=== PATIENT | male | born 1995 | race Two or more races ===

== ENCOUNTER 2018-07-16 05:39 | Emergency (ER) | payer SELFPAY ==
[~2018-07-16] VITALS: Ht 175.3 cm; Wt 70.8 kg
--- NOTE | 2018-07-16 05:50 | NUR ---
PT BIBS, AOX4 C/O SOB, AND HARD TO BREATH WITH SLIGHT PAIN OF 5/10 INTERMITTENT, ANXIOUS, 88 BEFORE BEING PLACED ON O2, VS STABLE, PLACED ON ER BED 3, IMMEDIATELY SEEN BY DR MOLINA, FOR EVAL, TX ORDERS AND MEDS ORDERED.
[2018-07-16 06:15] LABS: BASOPHILS # (AUTO) 0.1 /CMM (0.0-0.2); BASOPHILS % (AUTO) 0.6 % (0.0-2.0); EOSINOPHILS % (AUTO) 0.6 % (0.0-6.0); HEMATOCRIT 45 % (39-51); HEMOGLOBIN 15.7 g/dL (13.5-17.5); LYMPHOCYTES % (AUTO) 31.9 % (20.0-44.0); MEAN CORPUSCULAR HGB CONC 35 g/dl (31.0-36.0); MEAN CORPUSCULAR VOLUME 87 fL (80-96); MONOCYTES # (AUTO) 0.8 /CMM (0.1-1.30); MONOCYTES % (AUTO) 8.7 % (2.0-12.0); NEUTROPHILS # (AUTO) 5.4 /CMM (1.8-8.9); NEUTROPHILS % (AUTO) 58.2 % (43.0-81.0); PLATELET COUNT (AUTO) 215 /CMM (150-450); WHITE BLOOD COUNT (AUTO) 9.4 K/uL (4.3-11.0)
[2018-07-16 06:24] LABS: CALCIUM, SERUM 9.2 mg/dL (8.5-10.1); CARBON DIOXIDE 27 mmol/L (21-32); CHLORIDE 100 mmol/L (98-107); GLUCOSE 103 mg/dL (74-106); POTASSIUM 3.2 mmol/L (3.5-5.1); SODIUM SERUM 139 mmol/L (136-145); UREA NITROGEN, BLOOD 10 mg/dL (7-18)
[2018-07-16] MEDS ORDERED: MAG HYDROX/AL HYDROX/SIMETH 30 ML UDC PO ONE (06:30)
[2018-07-16] MEDS ORDERED: ONDANSETRON HCL/PF 4 MG/2 ML VIAL IVP ONE (06:30)
[2018-07-16] MEDS ORDERED: IV NS 0.9% 1,000 ML BAG IV ONE (06:30)
[2018-07-16] MEDS ORDERED: KETOROLAC TROMETHAMINE INJ 30 MG/ML VIAL IV ONE (06:30)
[2018-07-16] MEDS ORDERED: ALPRAZOLAM 0.5 MG TABLET PO ONE (06:30)
[2018-07-16] MEDS ORDERED: ALPRAZOLAM 0.5 MG TABLET ONE (06:31)
[2018-07-16] MEDS ORDERED: MAG HYDROX/AL HYDROX/SIMETH 30 ML UDC ONE (06:31)
[2018-07-16] MEDS ORDERED: KETOROLAC TROMETHAMINE 15 MG/ML VIAL ONE (06:31)
[2018-07-16] MEDS ORDERED: ONDANSETRON HCL/PF 4 MG/2 ML VIAL ONE (06:31)
[2018-07-16 06:40] LABS: ALBUMIN 4.6 g/dL (3.4-5.0); BILIRUBIN,DIRECT 0.2 mg/dL (0.0-0.2); BILIRUBIN,TOTAL 0.8 mg/dL (0.2-1.0); TOTAL PROTEIN, SERUM 7.6 g/dL (6.4-8.2)
[2018-07-16 07:19] VITALS: BP 125/95
--- NOTE | 2018-07-16 07:22 | NUR ---
For discharge [facility] given verbalized understanding. Home ambulatory in stable condition
== END 2018-07-16 07:22 | disposition home or self-care (01) ==
LOC: ER 05:42
DX: R07.89 Other chest pain (principal); F41.9 Anxiety disorder, unspecified
CPT/HCPCS: 36415; 71045; 80048; 80076; 83690; 84484; 85025; 85730; 93005; 96374; 96375; 99284; A4606; J1885; J2405; J7030